=== PATIENT | male | born 1985 | race Caucasian/White ===

== ENCOUNTER 2017-07-23 15:29 | Emergency (ER) | payer SELFPAY ==
[2017-07-23 17:18] VITALS: BP 128/79
--- NOTE | 2017-07-23 18:48 | ED ---
Throat Pain/Nasal Congestion - HPI Summary HPI Summary: Patient presents to the ED with CC of left eye irritation of unknown source. 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 He remembers having a minor splash upwards, but doesn't remember getting anything into his eye, until the eye started to burn a few minutes later. Since being in the ED, he states his eye symptoms have improved and reduced the pain from a 8/10 to 6/10 after washing the eye out with water. He has not used any drops yet. Denies getting any FB into the eye. He is otherwise healthy. He does not wear contacts and has never seen an eye doctor. Denies blurry vision or double vision. The eye has mild conjunctiva erythema, but is without other apparent abnormalities. - History of Current Complaint Chief Complaint: EDEyeProblem Time Seen by Provider: 07/23/17 15:46 Hx Obtained From: Patient Onset/Duration: Sudden Onset Severity: Moderate - Epiglottits Risk Factors Epiglottis Risk Factors: Negative - Allergies/Home Medications Allergies/Adverse Reactions: Allergies Allergy/AdvReac Type Severity Reaction Status Date / Time No Known Allergies Allergy Verified 03/15/17 20:15 PMH/Surg Hx/FS Hx/Imm Hx Previously Healthy: Yes Endocrine/Hematology History: Denies: Hx Diabetes - Immunization History Hx Pertussis Vaccination: No Immunizations Up to Date: Unable to Obtain/Confirm Infectious Disease History: No Infectious Disease History: Denies: Traveled Outside the [place] in Last 30 Days - Family History Known Family History: Positive: Cardiac Disease, Hypertension, Diabetes - Social History Occupation: Employed Full-time Lives: With Family Alcohol Use: None Hx Substance Use: No Substance Use Type: Reports: None Hx Tobacco Use: Yes Smoking Status (MU): Former Smoker Review of Systems Constitutional: Negative Negative: Fever, Chills, Fatigue Positive: Photophobia, Erythema. Negative: Blurred Vision, Diplopia, Drainage ENT: Negative Cardiovascular: Negative Respiratory: Negative Positive: no symptoms reported, see HPI Skin: Negative Neurological: Negative All Other Systems Reviewed And Are Negative: Yes Physical Exam Triage Information Reviewed: Yes Vital Signs On Initial Exam: Initial Vitals Temp Pulse Resp BP Pulse Ox 97.9 F 71 16 133/75 98 07/23/17 15:36 07/23/17 15:36 07/23/17 15:36 07/23/17 15:36 07/23/17 15:36 Vital Signs Reviewed: Yes Appearance: Positive: Well-Appearing, Well-Nourished Skin: Positive: Warm, Skin Color Reflects Adequate Perfusion Eyes: Positive: Conjunctiva Inflammed Neck: Positive: Supple, No Lymphadenopathy Respiratory/Lung Sounds: Positive: Clear to Auscultation, Breath Sounds Present Cardiovascular: Positive: Normal, RRR, Pulses are Symmetrical in both Upper and Lower Extremities Musculoskeletal: Positive: Normal, Strength/ROM Intact Neurological: Positive: Speech Normal Psychiatric: Positive: Normal Diagnostics - Vital Signs Vital Signs Temp Pulse Resp BP Pulse Ox 07/23/17 17:17 97.7 F 63 16 128/79 07/23/17 15:36 97.9 F 71 16 133/75 98 - Laboratory Lab Statement: Any lab studies that have been ordered have been reviewed, and results considered in the medical decision making process. EENT Course/Dx - Course Course Of Treatment: Patient evaluated for conjunctivitis vs chemical exposure burn vs. ocular trauma or periocular trauma. He denies sunlight rivera, recent illness or sick contacts. After scanning the eye with fluorescein uptake using tetracaine analgesic, the upper and lower lids retracted to allow for assessment of FB under the eye lids. No obvious perforation with teardrop pupil , vitreous extrusion, or protruding intraocular foreign body. No orbital compartment syndrome, hyphema, subconjunctival hemorrhage, evidence of increased intraorbital pressure or evidence of abrasions. Patient is made aware that provider is unable to see a FB or abrasions on uptake. 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 pH was 7.0 and WNL. He feels improved and he is encouraged to wash out the eye at home and eye drops for relief. He states he does not want to use the savannah lens. Polymyxin-trimethoprim abx drops ordered d/t possible abrasion from any caustic material. Patient is encouraged to follow up with opthomology today if symptoms persist. Patient agrees to plan and is discharged to home. Opthomology consult given. - Differential Diagnoses Differential Diagnoses: Conjunctivitis, Corneal Abrasion, Penetrating Injury, Other - chemical burn - Diagnoses Provider Diagnoses: Chemical exposure of eye Discharge - Discharge Plan Condition: Stable Disposition: HOME Prescriptions: Polymyx/Trimethoprim OPTH* [Polytrim OPHTH*] 1 drop LEFT EYE Q4H #1 btl Patient Education Materials: Chemical Eye Rivera (ED) Referrals: No Primary Care Phys,NOPCP [Primary Care Provider] - Additional Instructions: Follow up with opthomology if symptoms continue Call Dr. Smith's office if symptoms persist Antibiotic drops 4 times daily for 5-7 days Purchase lubricating eye drops and use several times today if burning sensation continues You may also use warm water gently to splash into the left eye - do this several times.
== END 2017-07-23 17:17 | disposition home or self-care (01) ==
LOC: ED 15:29
DX: Z77.098 Contact with and (suspected) exposure to other hazardous, chiefly nonmedicinal, chemicals (principal)
CPT/HCPCS: 99282

== ENCOUNTER 2017-07-28 17:11 | Emergency (ER) | payer BC ==
[2017-07-28 17:17] VITALS: BP 130/97
--- NOTE | 2017-07-28 17:57 | UC ---
[facility] HPI - HPI Summary HPI Summary: right upper and left lower dental pain and swelling has an appointment with the dentist on July - History of Current Complaint Chief Complaint: UCDentalProblem Stated Complaint: ABSCESS TEETH Time Seen by Provider: 07/28/17 17:56 Hx Obtained From: Patient Onset/Duration: Gradual Onset, Lasting Days Severity: Severe Pain Intensity: 10 Pain Scale Used: 0-10 Numeric Aggravating: Heat, Cold Alleviating: Nothing Related History: Previous Dental Care on Same Tooth, Swelling - Allergies/Home Medications Allergies/Adverse Reactions: Allergies Allergy/AdvReac Type Severity Reaction Status Date / Time No Known Allergies Allergy Verified 07/28/17 17:17 PMH/Surg Hx/FS Hx/Imm Hx Previously Healthy: Yes - Surgical History Surgical History: None - Family History Known Family History: Positive: Cardiac Disease, Hypertension, Diabetes - Social History Occupation: Employed Full-time Lives: With Family Alcohol Use: None Substance Use Type: None Smoking Status (MU): Heavy Every Day Tobacco Smoker Review of Systems Constitutional: Negative Skin: Negative Eyes: Negative ENT: Dental Pain Respiratory: Negative Cardiovascular: Negative Gastrointestinal: Negative Genitourinary: Negative Motor: Negative Neurovascular: Negative Musculoskeletal: Negative Neurological: Negative Psychological: Negative Is Patient Immunocompromised?: No All Other Systems Reviewed And Are Negative: Yes Physical Exam Triage Information Reviewed: Yes Appearance: Well-Appearing, Well-Nourished, Pain Distress Vital Signs: Initial Vital Signs Temp 98.0 F 07/28/17 17:15 Pulse 90 07/28/17 17:15 Resp 18 07/28/17 17:15 BP 130/97 07/28/17 17:15 Pulse Ox 97 07/28/17 17:15 Vital Signs Reviewed: Yes Eye Exam: Normal Eyes: Positive: Conjunctiva Clear ENT Exam: Normal ENT: Positive: Normal ENT inspection, Hearing grossly normal, Pharynx normal. Negative: Nasal congestion, Nasal drainage, Trismus, Muffled/hoarse voice Dental Exam: Other Dental: Positive: Percussion Tenderness @ - right lower last molar and left upper last molar Neck exam: Normal Neck: Positive: Supple, Nontender Respiratory Exam: Normal Respiratory: Positive: Chest non-tender, No respiratory distress, No accessory muscle use Cardiovascular Exam: Normal Cardiovascular: Positive: Pulses Normal, Brisk Capillary Refill Musculoskeletal Exam: Normal Musculoskeletal: Positive: Strength Intact, ROM Intact Neurological Exam: Normal Neurological: Positive: Alert, Muscle Tone Normal Psychological Exam: Normal Skin Exam: Normal Dental Complaint Course/Dx - Course Course Of Treatment: Amoxicillin, hydrocodone, ibuprofen, follow with dentist as planned - Differential Dx/Diagnosis Differential Diagnosis/Dx: Dental Caries, Odontogenic Pain, Peridontic Disease, Peritonsillar Abcess Provider Diagnoses: Dental pain with dental abscess Discharge - Discharge Plan Condition: Stable Disposition: HOME Prescriptions: Amoxicillin PO (*) [Amoxicillin 500 MG CAP*] 500 mg PO TID #30 cap Hydrocodone-Acetaminophen [Hydrocodone/Acetaminophen 5-325 mg] 1 tab PO Q4H PRN #25 tab MDD 6 PRN Reason: dental pain Patient Education Materials: Dental Abscess (ED) Referrals: No Primary Care Phys,NOPCP [Primary Care Provider] - Additional Instructions: Follow at [facility] On August 05, 2017 as planned
== END 2017-07-28 18:15 | disposition home or self-care (01) ==
LOC: UCEAST 17:11
DX: K04.7 Periapical abscess without sinus (principal); F17.210 Nicotine dependence, cigarettes, uncomplicated
CPT/HCPCS: 99212; G0463

== ENCOUNTER 2019-02-26 08:47 | Emergency (ER) | payer SELFPAY ==
[2019-02-26 10:03] VITALS: BP 126/87
--- NOTE | 2019-02-26 10:10 | ED ---
Skin Complaint - HPI Summary HPI Summary: Patient is a 33-year-old male with no past significant medical history presents to the ED with the lower back spider bite which has now been spontaneously draining purulent drainage. The area is approximately 2 cm in width, erythematous, painful and warm. The area has a 0.5 cm lesion in the center with purulent drainage. He states he recalls being bitten several days ago and the area has worsened since then. He denies any weakness, nausea, vomiting, diarrhea, constipation, other pain. He states he is otherwise healthy and takes no medications. He has never had an abscess in the past. He denies any fevers, chills. - History of Current Complaint Chief Complaint: EDAnimalBite Time Seen by Provider: 02/26/19 08:56 Stated Complaint: SPIDER BITE ON BACK PER PT Hx Obtained From: Patient Onset/Duration: Started Hours Ago Skin Exposure Onset/Duration: Hours Ago Timing: Constant Onset Severity: Mild Current Severity: Mild Pain Intensity: 0 Pain Scale Used: 0-10 Numeric Skin Location: Discrete - left lower back Aggravating Symptom(s): Touch Alleviating Symptom(s): Nothing Associated Signs & Symptoms: Negative Related History: Insect Bite/Sting - Allergy/Home Medications Allergies/Adverse Reactions: Allergies Allergy/AdvReac Type Severity Reaction Status Date / Time No Known Allergies Allergy Verified 02/26/19 08:53 PMH/Surg Hx/FS Hx/Imm Hx Previously Healthy: Yes Endocrine/Hematology History: Denies: Hx Diabetes - Immunization History Hx Pertussis Vaccination: No Immunizations Up to Date: Yes Infectious Disease History: No Infectious Disease History: Denies: Traveled Outside the [place] in Last 30 Days - Family History Known Family History: Positive: Cardiac Disease, Hypertension, Diabetes - Social History Occupation: Employed Full-time Lives: With Family Alcohol Use: Occasionally Hx Substance Use: No Substance Use Type: Reports: Marijuana Hx Tobacco Use: Yes Smoking Status (MU): Heavy Every Day Tobacco Smoker Review of Systems Constitutional: Negative Negative: Fever, Chills, Skin Diaphoresis Negative: Palpitations, Chest Pain Negative: Shortness Of Breath, Cough Genitourinary: Negative Positive: no symptoms reported, see HPI Negative: Arthralgia, Myalgia Positive: Other - abscess Neurological: Negative All Other Systems Reviewed And Are Negative: Yes Physical Exam Triage Information Reviewed: Yes Vital Signs On Initial Exam: Initial Vitals Temp Pulse Resp BP Pulse Ox 98.2 F 79 16 127/82 98 02/26/19 08:50 02/26/19 08:50 02/26/19 08:50 02/26/19 08:50 02/26/19 08:50 Vital Signs Reviewed: Yes Appearance: Positive: Well-Appearing, Well-Nourished Skin: Positive: Warm, Skin Color Reflects Adequate Perfusion Head/Face: Positive: Normal Head/Face Inspection Eyes: Positive: EOMI, Conjunctiva Clear Neck: Positive: Supple, No Lymphadenopathy Respiratory/Lung Sounds: Positive: Clear to Auscultation, Breath Sounds Present Cardiovascular: Positive: RRR, Pulses are Symmetrical in both Upper and Lower Extremities Musculoskeletal: Positive: Strength/ROM Intact Neurological: Positive: Alert, Oriented to Person Place, Time, Speech Normal Psychiatric: Positive: Normal, Affect/Mood Appropriate Diagnostics - Vital Signs Vital Signs Temp Pulse Resp BP Pulse Ox 02/26/19 10:02 98.4 F 90 16 126/87 98 02/26/19 08:50 98.2 F 79 16 127/82 98 - Laboratory Lab Statement: Any lab studies that have been ordered have been reviewed, and results considered in the medical decision making process. Course/Dx - Course Course Of Treatment: During this question, the patient is evaluated for acute lower left-sided back spider bite with infection and this has been spontaneously draining with past day. He endorses pain over the area. He has not used anything for relief. He has never had an abscess in the past. During the visit, an I&D was performed. ChloraPrep used for cleansing, sterile technique. 1% lidocaine without epi used as local anesthetic. Small 0.3 cm incision made using a 21 blade needle. Patient tolerated well. Culture obtained. Purulent drainage from the area and used forceps to assess for any loculated areas. The area is approx .3cm deep. Iodoform dressing not placed as area was too small. Continues to spontaneously drain it. Bandage placed over the area with Tegaderm. Bactrim twice daily 5 days. - Diagnoses Provider Diagnoses: Abscess Discharge - Sign-Out/Discharge Documenting (check all that apply): Patient Departure Patient Received Moderate/Deep Sedation with Procedure: No - Discharge Plan Condition: Stable Disposition: HOME Prescriptions: Sulfamethox/Trimethoprim DS* [Bactrim DS 800/160 TAB*] 1 tab PO BID #10 tab MDD 2 Patient Education Materials: Abscess (ED) Referrals: No Primary Care Phys,NOPCP [Primary Care Provider] - Additional Instructions: Re-bandage tomorrow Place warm compresses over the area Return if you develop any worsening or changing symptoms Bactrim twice daily 5 days - Billing Disposition and Condition Condition: STABLE Disposition: Home
--- NOTE | 2019-02-27 06:50 | PN ---
Progress Note - Progress Note Date of Service: 02/26/19 Note: Wound culture positive for MRSA and staph aureus Patient was placed on Bactrim prior to discharge This is likely recovering organism Nothing further at this time
== END 2019-02-26 10:02 | disposition home or self-care (01) ==
LOC: ED 08:47
DX: L02.212 Cutaneous abscess of back [any part, except buttock and flank] (principal); F17.210 Nicotine dependence, cigarettes, uncomplicated
CPT/HCPCS: 87070; 87077; 87186; 87205; 87640; 87641; 99282